=== PATIENT | male | born 1940 | race Caucasian/White ===

== ENCOUNTER 2022-01-02 11:55 | Inpatient (IN) ==
[2022-01-02 12:24] LABS: Basophils % 0.5 % (0.0-0.8); Eosinophils # 0.1 10*3/uL (0.0-0.87); Eosinophils % 2.4 % (0.00-10.9); Hematocrit 40.8 VOL% (42.0-52.0); Hemoglobin 13.2 GM/DL (14.0-18.0); Immature Granulocytes % 0.2 %; Immature Granulocytes Absolute 0.01 #; Lymphocytes # 1.3 10*3/uL (1.4-4.0); Lymphocytes % 21.9 % (21.2-54.2); Mean Corpuscular HGB Conc 32.4 GM/DL (32-36); Mean Corpuscular Volume 90.5 FL (87-102); Mean Platelet Volume 10.3 FL (9.6-12.0); Monocytes # 0.4 10*3/uL (0.11-0.8); Monocytes % 7.2 % (1.7-12.7); Neutrophils % 67.8 % (38.7-73.9); Platelet Count 199 T/CUMM (130-400); Red Blood Count 4.51 MC/CUMM (3.8-5.5); Red Cell Distribution Width 13.6 % (9.3-17.3); White Blood Count 5.8 T/CUMM (4-12)
[2022-01-02 12:42] LABS: Albumin 3.7 G/DL (3.4-5.0); Bilirubin,Total 0.4 MG/DL (0.20-1.00); Calcium 9.8 MG/DL (8.5-10.1); Osmolality,Calculated 282.4 MOS/KG (273-304); Total Protein 7.2 G/DL (6.4-8.2)
[2022-01-02] MEDS ORDERED: DILTIAZEM 25 MG/5 ML VIAL IV STA (13:04)
[2022-01-02 13:17] LABS: Mucus,Urine Occasional /LPF (Occasional); RBC,Urine 193 /HPF (0-4)
[2022-01-02 13:18] LABS: Bilirubin,Urine Negative (Negative); Blood, Urine Large mg/dL (Negative); Glucose,Urine (UA) Negative (Negative); Ketones,Urine Negative (Negative); Nitrite,Urine Negative (Negative); Protein,Urine Negative (Negative); Urine Appearance Clear (Clear); Urine Color Red (Yellow); Urine Urobilinogen 0.2 eU/dL (<2.0); Urine pH 6.5 (4.5-8.0)
[2022-01-02] MEDS: DILTIAZEM INJ 100 MG in SODIUM CHLORIDE 0.9% 100 ML IV SCH ×2 (13:30→23:00)
[2022-01-02 13:33] LABS: Thyroid Stimulating Hormone 2.29 uIU/ml (0.358-3.74)
[2022-01-02 14:45] LABS: PT Patient Result 10.9 SECS (10.1-12.1); Partial Thromboplastin Time 27.6 SECS (23.7-32.9)
[2022-01-02 14:53] LABS: Barbiturates Screen,Urine Negative (Negative); Benzodiazepines Screen,Urine Negative (Negative); Cannabinoid Screen,Urine Negative (Negative); Opiate Screen,Urine Negative (Negative); Phencyclidine Screen,Urine Negative (Negative)
[2022-01-02] MEDS ORDERED: ONDANSETRON 4 MG/2 ML VIAL IV PRN (15:10)
[2022-01-02] MEDS ORDERED: ACETAMINOPHEN 325 MG TABLET PO PRN (15:10)
[2022-01-02] MEDS: SODIUM CHLORIDE 0.9% 1,000 ML IV SCH (16:04)
[2022-01-02] MEDS: APIXABAN 5 MG TABLET PO SCH (21:30)
[2022-01-02] MEDS: DOCUSATE SODIUM 100 MG CAPSULE PO SCH (21:30)
[2022-01-03] MEDS: SODIUM CHLORIDE 0.9% 1,000 ML IV SCH ×3 (00:02→17:10)
[2022-01-03] MEDS ORDERED: FLUTICASONE 50 MCG NASAL SPRAY 16 GM BOTTLE BOTH NARES PRN (10:54)
[2022-01-03] MEDS: DILTIAZEM CD 120 MG CAPSULE PO SCH (13:08)
[2022-01-03] MEDS: DOCUSATE SODIUM 100 MG CAPSULE PO SCH ×2 (13:08→22:34)
[2022-01-03] MEDS: APIXABAN 5 MG TABLET PO SCH ×2 (13:08→22:34)
[2022-01-03] MEDS: allopurinoL 100 MG TABLET PO SCH (13:08)
[2022-01-03] MEDS: PANTOPRAZOLE 40 MG TABLET PO SCH (13:08)
[2022-01-03] MEDS ORDERED: ALBUTEROL 2.5 MG/3 ML NEB RESP TX PRN (13:35)
[2022-01-03] MEDS: traZODone 50 MG TABLET PO SCH (22:33)
[2022-01-03] MEDS: TAMSULOSIN 0.4 MG CAPSULE PO SCH (22:33)
[2022-01-03] MEDS: MONTELUKAST 10 MG TABLET PO SCH (22:33)
[2022-01-03] MEDS: DONEPEZIL 5 MG TABLET PO SCH (22:33)
[2022-01-03] MEDS: SIMVASTATIN 40 MG TABLET PO SCH (22:33)
[2022-01-03] MEDS: CIPROFLOXACIN 500 MG TABLET PO SCH (22:33)
[2022-01-03] MEDS: QUEtiapine 25 MG TABLET PO SCH (22:34)
[2022-01-03] MEDS: KETOCONAZOLE 2% CREAM 30 GM TUBE TOP SCH (22:36)
[2022-01-04 04:56] LABS: Basophils # 0.1 10*3/uL (0.0-0.2); Basophils % 0.9 % (0.0-0.8); Eosinophils # 0.3 10*3/uL (0.0-0.87); Eosinophils % 6.2 % (0.00-10.9); Hematocrit 37.2 VOL% (42.0-52.0); Hemoglobin 11.9 GM/DL (14.0-18.0); Immature Granulocytes % 0.2 %; Immature Granulocytes Absolute 0.01 #; Lymphocytes # 2.3 10*3/uL (1.4-4.0); Mean Corpuscular Volume 91.2 FL (87-102); Mean Platelet Volume 10.4 FL (9.6-12.0); Monocytes # 0.6 10*3/uL (0.11-0.8); Monocytes % 10.5 % (1.7-12.7); Neutrophils % 39.2 % (38.7-73.9); Platelet Count 171 T/CUMM (130-400); Red Blood Count 4.08 MC/CUMM (3.8-5.5); Red Cell Distribution Width 13.6 % (9.3-17.3); White Blood Count 5.4 T/CUMM (4-12)
[2022-01-04 05:11] LABS: Calcium 9.5 MG/DL (8.5-10.1); Osmolality,Calculated 280.4 MOS/KG (273-304); Potassium 3.6 MMOL/L (3.5-5.1)
[2022-01-04 05:13] LABS: Risk Ratio 2.89; VLDL Cholesterol 20.6 MG/DL
[2022-01-04] MEDS: SODIUM CHLORIDE 0.9% 1,000 ML IV SCH ×2 (06:55→20:23)
[2022-01-04] MEDS: DOCUSATE SODIUM 100 MG CAPSULE PO SCH ×2 (09:58→20:22)
[2022-01-04] MEDS: allopurinoL 100 MG TABLET PO SCH (09:58)
[2022-01-04] MEDS: CIPROFLOXACIN 500 MG TABLET PO SCH ×2 (09:58→20:22)
[2022-01-04] MEDS: QUEtiapine 25 MG TABLET PO SCH ×2 (09:58→20:22)
[2022-01-04] MEDS: PANTOPRAZOLE 40 MG TABLET PO SCH (09:59)
[2022-01-04] MEDS: DILTIAZEM CD 120 MG CAPSULE PO SCH (09:59)
[2022-01-04] MEDS: KETOCONAZOLE 2% CREAM 30 GM TUBE TOP SCH ×2 (10:01→20:23)
[2022-01-04] MEDS: APIXABAN 5 MG TABLET PO SCH ×2 (10:23→20:22)
[2022-01-04] MEDS: DONEPEZIL 5 MG TABLET PO SCH (20:22)
[2022-01-04] MEDS: TAMSULOSIN 0.4 MG CAPSULE PO SCH (20:22)
[2022-01-04] MEDS: SIMVASTATIN 40 MG TABLET PO SCH (20:22)
[2022-01-04] MEDS: traZODone 50 MG TABLET PO SCH (20:22)
[2022-01-04] MEDS: MONTELUKAST 10 MG TABLET PO SCH (20:22)
[2022-01-05 05:32] LABS: Basophils % 0.9 % (0.0-0.8); Eosinophils # 0.3 10*3/uL (0.0-0.87); Eosinophils % 7.2 % (0.00-10.9); Hematocrit 36.7 VOL% (42.0-52.0); Hemoglobin 11.5 GM/DL (14.0-18.0); Lymphocytes # 1.9 10*3/uL (1.4-4.0); Lymphocytes % 40.5 % (21.2-54.2); Mean Corpuscular HGB Conc 31.3 GM/DL (32-36); Mean Corpuscular Volume 92.2 FL (87-102); Mean Platelet Volume 10.5 FL (9.6-12.0); Monocytes # 0.5 10*3/uL (0.11-0.8); Monocytes % 10.4 % (1.7-12.7); Platelet Count 153 T/CUMM (130-400); Red Blood Count 3.98 MC/CUMM (3.8-5.5); Red Cell Distribution Width 13.6 % (9.3-17.3); White Blood Count 4.7 T/CUMM (4-12)
[2022-01-05 05:53] LABS: Calcium 9.2 MG/DL (8.5-10.1); Osmolality,Calculated 283.1 MOS/KG (273-304)
[2022-01-05] MEDS: CIPROFLOXACIN 500 MG TABLET PO SCH (09:17)
[2022-01-05] MEDS: QUEtiapine 25 MG TABLET PO SCH (09:17)
[2022-01-05] MEDS: allopurinoL 100 MG TABLET PO SCH (09:18)
[2022-01-05] MEDS: PANTOPRAZOLE 40 MG TABLET PO SCH (09:18)
[2022-01-05] MEDS: DILTIAZEM CD 120 MG CAPSULE PO SCH (09:18)
[2022-01-05] MEDS: DOCUSATE SODIUM 100 MG CAPSULE PO SCH (09:18)
[2022-01-05] MEDS: APIXABAN 5 MG TABLET PO SCH (09:18)
[2022-01-05] MEDS: KETOCONAZOLE 2% CREAM 30 GM TUBE TOP SCH (09:18)
[2022-01-05 11:23] VITALS: BP 133/71
== END 2022-01-05 13:10 | disposition home health service (06) | DRG 309 ==
LOC: N.ED 11:55 → N.EDINP 11:55 → N.TELEN 01-03 14:15
PROVIDERS: ADMIT Family Medicine; ATTEND Family Medicine